=== PATIENT | male | born 1970 ===

== ENCOUNTER 2017-05-21 23:54 | Emergency (ER) | payer OTHER ==
[2017-05-21 23:54] VITALS: BMI 37.9
[2017-05-22 00:12] VITALS: TEMP 98
[2017-05-22 00:15] VITALS: BP 138/95; PULSE 75
--- NOTE | 2017-05-22 00:48 | ED PDOC ---
Arrival/HPI <GumeTalon louis - Last Filed: 05/22/17 01:37> - General Historian: Patient EM Caveat: Acuity of Condition - History of Present Illness Time/Duration: Prior to Arrival, 1-3 hours Symptom Onset: Sudden Symptom Course: Unchanged Quality: Aching Severity Level: 5 Activities at Onset: Light Context: Standing <YASIR ALSTON - Last Filed: 05/22/17 03:16> - General Chief Complaint: Eye Problem Time Seen by Provider: 05/22/17 00:18 - History of Present Illness Narrative History of Present Illness (Text): 46 years old male with PMH diabetes, presents for right eye pain for past 1.5 hours. 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 He states that "something fell into his right eye while walking." Pt feels a sensation of foreign body in his right eye, hurts more with closing his eyelid. Denies any blurry vision, eye discharge, erythema, fever, chills. PMD Wassef 05/22/17 01:17 05/22/17 03:16 (YASIR ALSTON) Associated Symptoms (Text): 05/22/17 01:08 Denies swelling, erythema, changes in vision, fever, chills. 05/22/17 01:19 (YASIR ALSTON) Past Medical History - Provider Review Nursing Documentation Reviewed: Yes - Infectious Disease Hx of Infectious Diseases: None - Cardiac Hx Hypertension: Yes - Pulmonary Hx Respiratory Disorders: No - Neurological Hx Neurological Disorder: No - HEENT Hx HEENT Disorder: No - Endocrine/Metabolic Hx Diabetes Mellitus Type 2: Yes - Hematological/Oncological Hx Blood Disorders: No - Integumentary Hx Dermatological Disorder: No - Musculoskeletal/Rheumatological Hx Musculoskeletal Disorders: No - Gastrointestinal Hx Gastrointestinal Disorders: No - Genitourinary/Gynecological Hx Genitourinary Disorders: No - Psychiatric Hx Psychophysiologic Disorder: No Hx Substance Use: No - Surgical History Other/Comment: fx l forearm - Anesthesia Hx Anesthesia: No Hx Anesthesia Reactions: No Hx Malignant Hyperthermia: No <YASIR ALSTON - Last Filed: 05/22/17 03:16> Family/Social History - Physician Review Nursing Documentation Reviewed: Yes Family/Social History: No Known Family HX Smoking Status: Former Smoker Hx Alcohol Use: No Hx Substance Use: No <YASIR ALSTON - Last Filed: 05/22/17 03:16> Allergies/Home Meds <GumeTalon - Last Filed: 05/22/17 01:37> <YASIR ALSTON - Last Filed: 05/22/17 03:16> Allergies/Adverse Reactions: Allergies No Known Allergies Allergy (Verified 05/22/17 00:12) Home Medications: Home Meds Medication Instructions Recorded Confirmed Lisinopril [Zestril] 20 mg PO DAILY 08/17/16 05/22/17 MetFORMIN [glucOPHAGE] 1,000 mg PO BID 08/17/16 05/22/17 Review of Systems - Physician Review All systems were reviewed & negative as marked: Yes - Review of Systems Constitutional: absent: Fatigue, Fevers Eyes: Eye Pain. absent: Vision Changes, Photophobia ENT: absent: Hearing Changes, Sinus Congestion Respiratory: absent: SOB, Cough Cardiovascular: absent: Chest Pain, Orthopnea Skin: absent: Rash, Cellulitis <YASIR ALSTON - Last Filed: 05/22/17 03:16> Physical Exam Vital Signs Reviewed: Yes Temperature: Afebrile Blood Pressure: Normal Pulse: Regular Respiratory Rate: Normal Appearance: Positive for: Uncomfortable Pain Distress: Mild Mental Status: Positive for: Alert and Oriented X 3 - Systems Exam Head: Present: Atraumatic, Normocephalic Pupils: Present: PERRL Extroacular Muscles: Present: EOMI Conjunctiva: Present: Normal, Other (right eye, small foreign body noted on iris ) Mouth: Present: Moist Mucous Membranes Neck: Present: Normal Range of Motion Respiratory/Chest: Present: Clear to Auscultation Cardiovascular: Present: Regular Rate and Rhythm, Normal S1, S2. No: Murmurs Abdomen: Present: Normal Bowel Sounds Lower Extremity: No: CALF TENDERNESS, Swelling Neurological: Present: Speech Normal Skin: Present: Warm, Dry Psychiatric: Present: Alert, Oriented x 3 <YASIR ALSTON - Last Filed: 05/22/17 03:16> Vital Signs Temp Pulse Resp BP Pulse Ox 05/22/17 01:19 18 99 05/22/17 00:14 75 19 138/95 H 96 05/22/17 00:09 98.0 F 68 18 131/95 H 97 Medical Decision Making <Talon Dunaway - Last Filed: 05/22/17 01:37> <YASIR ALSTON - Last Filed: 05/22/17 03:16> ED Course and Treatment: Impression: Pt seen and evaluated with medical equipment technician. Pt, whose past medical history includes diabetes, presented for right eye foreign body sensation and discomfort tonight, worse when blinking/closing his eye. States something may have entered his eye earlier while walking. Aware and agree with HPI, clinical findings, plan, and management. Plan: -- Foreign Body Removal -- Reassess and disposition (Talon Dunaway) 05/22/17 00:56 46 years old male presents for right eye intraocular foreign body: - Dr. Dunaway initially anesthetized with tetracaine drop in right eye. Cotton tipped applicator used to remove small juan/foreign body off the right eye, area of iris, without difficulty. Tobramycin 2 drops placed in right eye after the procedure. - Reassess and disposition. (YASIR ALSTON) - Medication Orders Current Medication Orders: Discontinued Medications Tobramycin Sulfate (Tobrex 0.3% Ophth Soln) 2 drop OD STAT STA Stop: 05/22/17 00:51 Last Admin: 05/22/17 01:19 Dose: 2 drop - PA / [facility] / Resident Statement / has reviewed & agrees with the documentation as recorded. / has examined the patient and agrees with the treatment plan. <Talon Dunaway - Last Filed: 05/22/17 01:37> Disposition/Present on Arrival <Talon Dunaway - Last Filed: 05/22/17 01:37> - Present on Arrival Any Indicators Present on Arrival: No History of DVT/PE: No History of Uncontrolled Diabetes: No Urinary Catheter: No History of Decub. Ulcer: No History Surgical Site Infection Following: None - Disposition Have Diagnosis and Disposition been Completed?: Yes Disposition Time: 01:14 Patient Plan: Discharge <YASIR ALSTON - Last Filed: 05/22/17 03:16> - Disposition Diagnosis: Foreign body in eye Disposition: HOME/ ROUTINE Condition: IMPROVED Discharge Instructions (ExitCare): Eye Foreign Body (ED) Print Language: YI Additional Instructions: - Please take Tobramycin drops three times a day. - Please follow up with eye doctor, Dr. Zendejas, tomorrow. - If eye symptoms worsen, please return to the ER. Prescriptions: Tobramycin 0.3% [Tobrex 0.3% Ophth Soln] 2 drop OD TID #1 bottle Referrals: Laura Werner MD [Primary Care Provider] - Follow up with primary Gentry Zendejas [Staff Provider] - Follow up with primary Forms: [employer] (Cape Verdean)
[2017-05-22] MEDS ORDERED: Tobramycin 0.3% OPHT SOLN OD STA (00:50)
[2017-05-22 01:20] VITALS: RESP 18; O2SAT 99
== END 2017-05-22 01:20 | disposition home or self-care (01) ==
LOC: ED 23:54
DX: T15.91XA Foreign body on external eye, part unspecified, right eye, initial encounter (principal); X58.XXXA Exposure to other specified factors, initial encounter

== ENCOUNTER 2017-10-06 21:24 | Emergency (ER) | payer SELFPAY ==
[2017-10-06] MEDS ORDERED: Albuterol-Ipratrop 3 mg / 0.5 (3 ml) UD IH STA (22:18)
[2017-10-06 22:22] VITALS: BMI 38.7
--- NOTE | 2017-10-06 22:29 | ED PDOC ---
Arrival/HPI - General Chief Complaint: Cough, Cold, Congestion Time Seen by Provider: 10/06/17 22:09 Historian: Patient, Other (brother served as computer game designer) - History of Present Illness Narrative History of Present Illness (Text): 10/06/17 22:20 A 47 year old male, Surinamese speaking, brother at bedside served as computer game designer, whose past medical history includes hypertension, sleep apnea and diabetes, presents to the emergency department complaining of fever and cough from 16:00 today, about six hours ago. Patient reports he takes medications for his blood pressure and diabetes, unsure of what they're called. Patient also reports he has cpap machine at home, which he states he uses at night. Patient denies any other complaints at this time. PMD: Dr. Werner Time/Duration: 4-6 hours Symptom Onset: Sudden Symptom Course: Unchanged Activities at Onset: Rest Context: Home Past Medical History - Provider Review Nursing Documentation Reviewed: Yes - Infectious Disease Hx of Infectious Diseases: None - Cardiac Hx Hypertension: Yes - Pulmonary Hx Respiratory Disorders: No - Neurological Hx Neurological Disorder: No - HEENT Hx HEENT Disorder: No - Endocrine/Metabolic Hx Diabetes Mellitus Type 2: Yes - Hematological/Oncological Hx Blood Disorders: No - Integumentary Hx Dermatological Disorder: No - Musculoskeletal/Rheumatological Hx Musculoskeletal Disorders: No - Gastrointestinal Hx Gastrointestinal Disorders: No - Genitourinary/Gynecological Hx Genitourinary Disorders: No - Psychiatric Hx Psychophysiologic Disorder: No Hx Substance Use: No - Surgical History Other/Comment: fx l forearm - Anesthesia Hx Anesthesia: No Hx Anesthesia Reactions: No Hx Malignant Hyperthermia: No Family/Social History - Physician Review Nursing Documentation Reviewed: Yes Family/Social History: No Known Family HX Smoking Status: Former Smoker Hx Alcohol Use: No Hx Substance Use: No Allergies/Home Meds Allergies/Adverse Reactions: Allergies No Known Allergies Allergy (Verified 05/22/17 00:12) Home Medications: Home Meds Medication Instructions Recorded Confirmed Lisinopril [Zestril] 20 mg PO DAILY 08/17/16 10/06/17 MetFORMIN [glucOPHAGE] 1,000 mg PO BID 08/17/16 10/06/17 Review of Systems - Physician Review All systems were reviewed & negative as marked: Yes - Review of Systems Constitutional: Fevers Respiratory: Cough Physical Exam Vital Signs Reviewed: Yes Vital Signs Temp Pulse Resp BP Pulse Ox 10/06/17 22:12 98.5 F 66 20 142/88 99 Temperature: Afebrile Blood Pressure: Normal Pulse: Regular Respiratory Rate: Normal Appearance: Positive for: Comfortable, Other (morbidly obese) Pain Distress: None Mental Status: Positive for: Alert and Oriented X 3 - Systems Exam Head: Present: Atraumatic, Normocephalic Pupils: Present: PERRL Extroacular Muscles: Present: EOMI Conjunctiva: Present: Normal Mouth: Present: Moist Mucous Membranes Neck: Present: Normal Range of Motion Respiratory/Chest: Present: Clear to Auscultation, Good Air Exchange, Other ( able to lay flat, not uncomfortable). No: Respiratory Distress, Accessory Muscle Use Cardiovascular: Present: Regular Rate and Rhythm, Normal S1, S2. No: Murmurs Abdomen: Present: Normal Bowel Sounds. No: Tenderness, Distention, Peritoneal Signs Back: Present: Normal Inspection Upper Extremity: Present: Normal Inspection. No: Cyanosis, Edema Lower Extremity: Present: Normal Inspection. No: Edema Neurological: Present: GCS=15, CN II-XII Intact, Speech Normal Skin: Present: Warm, Dry, Normal Color. No: Rashes Psychiatric: Present: Alert, Oriented x 3, Normal Insight, Normal Concentration Medical Decision Making ED Course and Treatment: 10/06/17 22:24 Impression: A 47 year old male with fever and cough. Plan: -- Chest X-ray -- labs -- Duoneb, Solumedrol -- Reassess and disposition Prior Visits: Notes and results from previous visits were reviewed. Patient was last seen in the emergency department on 05/21/17 for evaluation of right eye pain. Progress Notes: 10/07/17 02:08 Chest X-ray No active disease, as read by me. 10/07/17 02:46 On re-evaluation, patient feels better and is in no acute distress. I have discussed the results and plan with the patient, who expresses understanding. Patient in agreement with plan to be discharged home. Patient is stable for discharge. Patient was instructed to follow up with physician or return if symptoms worsen or new concerning symptoms arise. - Lab Interpretations Lab Results: 10/06/17 23:10 10/06/17 23:10 Lab Results 10/06/17 23:10: Sodium 137, Chloride 102, Potassium 3.5 L, Carbon Dioxide 25, Anion Gap 14, BUN 12, Creatinine 0.8, Est GFR ( Amer) > 60, Est GFR (Non- Af Amer) > 60, Random Glucose 209 H, Calcium 9.3, Total Bilirubin 0.4, AST 30, ALT 47, Alkaline Phosphatase 91, Total Protein 7.7, Albumin 4.0, Globulin 3.7, Albumin/Globulin Ratio 1.1 10/06/17 23:10: pO2 66 H, VBG pH 7.37, VBG pCO2 46.0, VBG HCO3 26.6, VBG Total CO2 28.0, VBG O2 Sat (Calc) 96.7 H, VBG Base Excess 0.8, VBG Potassium 3.5 L, Sodium 137.0, Chloride 104.0, Glucose 217 H, Lactate 1.5, FiO2 21.0, Venous Blood Potassium 3.5 L 10/06/17 23:10: WBC 9.7, RBC 4.61, Hgb 13.4 L, Hct 39.2 L, MCV 85.0, MCH 29.1, MCHC 34.2, RDW 13.5, Plt Count 182, MPV 11.1 H, Gran % 71.7 H, Lymph % (Auto) 18.9 L, [place] % (Auto) 6.5 H, Eos % (Auto) 2.6, Baso % (Auto) 0.3, Gran # 6.93 H , Lymph # (Auto) 1.8, [place] # (Auto) 0.6, Eos # (Auto) 0.3, Baso # (Auto) 0.03 I have reviewed the lab results: Yes - RAD Interpretation Radiology Orders: 10/06/17 22:16 CHEST TWO VIEWS (PA/LAT) [RAD] Stat - Medication Orders Current Medication Orders: Discontinued Medications Albuterol/Ipratropium (Duoneb 3 Mg/0.5 Mg (3 Ml) Ud) 3 ml IH STAT STA Stop: 10/06/17 22:19 Last Admin: 10/06/17 23:08 Dose: 3 ml Azithromycin (Zithromax) 500 mg PO STAT STA PRN Reason: Protocol Stop: 10/07/17 02:40 Methylprednisolone (Solu-Medrol) 125 mg IVP STAT STA Stop: 10/06/17 22:17 Last Admin: 10/06/17 23:08 Dose: 125 mg IVP Administration Document 10/06/17 23:08 ESTRELLITA (Rec: 10/06/17 23:08 LA [id number]) Charges for Administration # of IVP Administrations 1 - PA / [employer] / Resident Statement MD/DO has reviewed & agrees with the documentation as recorded. - Scribe Statement The provider has reviewed the documentation as recorded by the Scribe Gutierrez Camarena Provider Scribe Attestation: All medical record entries made by the Fauziaibe were at my direction and personally dictated by me. I have reviewed the chart and agree that the record accurately reflects my personal performance of the history, physical exam, medical decision making, and the department course for this patient. I have also personally directed, reviewed, and agree with the discharge instructions and disposition. Disposition/Present on Arrival - Present on Arrival Any Indicators Present on Arrival: No History of DVT/PE: No History of Uncontrolled Diabetes: No Urinary Catheter: No History of Decub. Ulcer: No History Surgical Site Infection Following: None - Disposition Have Diagnosis and Disposition been Completed?: No Diagnosis: Acute bronchitis Disposition: Transfer [facility] Disposition Time: 02:42 Patient Plan: Discharge Patient Problems: Current Active Problems Problem Status Onset Acute bronchitis Acute Condition: GOOD Discharge Instructions (ExitCare): Acute Bronchitis Prescriptions: Azithromycin [Zithromax] 500 mg PO DAILY #7 tablet Methylprednisolone [Medrol Dose Pack (21 tabs)] 4 mg PO DAILY #21 mg Forms: [employer] Desktop (Mosotho), [employer] Desktop (Surinamese)
[2017-10-06 23:52] LABS: BASO # 0.03 K/mm3 (0.0-2.0); BASO % 0.3 % (0.0-3.0); EOS # 0.3 (0.0-0.7); EOS % 2.6 % (1.5-5.0); GRAN # 6.93 (1.4-6.5); GRAN % 71.7 % (50.0-68.0); HEMOGLOBIN 13.4 g/dL (14.0-18.0); LYMPH # 1.8 (1.2-3.4); LYMPH % 18.9 % (22.0-35.0); MEAN CORPUSCULAR HEMOGLOBIN 29.1 pg (25.0-35.0); MEAN CORPUSCULAR HGB CONC 34.2 g/dl (31.0-37.0); MEAN PLATELET VOLUME 11.1 fl (7.0-11.0); MONO # 0.6 (0.1-0.6); MONO % 6.5 % (1.0-6.0); RBC 4.61 10^6/uL (3.5-6.1); RED CELL DISTRIBUTION WIDTH 13.5 % (11.5-14.5); WHITE BLOOD COUNT 9.7 10^3/ul (4.5-11.0)
[2017-10-06 23:57] LABS: VENOUS BLOOD GAS BASE EXCESS 0.8 mmol/L (0.0-2.0); VENOUS BLOOD GAS PO2 66 mm/Hg (30-55); VENOUS BLOOD PH 7.37 (7.32-7.43)
[2017-10-07 00:04] LABS: ALB/GLOB RATIO 1.1 (1.1-1.8); ALT/SGPT 47 U/L (7-56); AST/SGOT 30 U/L (17-59); BLOOD UREA NITROGEN 12 mg/dL (7-21); CALCIUM 9.3 mg/dL (8.4-10.5); GFR AFRICAN-AMERICAN > 60; GFR NON-AFRICAN AMERICAN > 60
[2017-10-07 03:36] VITALS: BP 140/74; PULSE 67; RESP 18; TEMP 98.6; O2SAT 97
--- NOTE | 2017-10-07 08:52 | RAD ---
HISTORY: cough COMPARISON: 08/17/2016 TECHNIQUE: Chest PA and lateral FINDINGS: LUNGS: No active pulmonary disease. PLEURA: No significant pleural effusion identified. No pneumothorax apparent. CARDIOVASCULAR: Normal. OSSEOUS STRUCTURES: Mild thoracic spondylosis VISUALIZED UPPER ABDOMEN: Normal. OTHER FINDINGS: None. IMPRESSION: No active disease.
== END 2017-10-07 02:58 | disposition home or self-care (01) ==
LOC: ED 21:24
DX: J20.9 Acute bronchitis, unspecified (principal); E11.9 Type 2 diabetes mellitus without complications; I10 Essential (primary) hypertension
CPT/HCPCS: 71046; 80053; 82803; 85025; 87040; 96374; 99284; J2930